=== PATIENT | female | born 1985 | race Caucasian/White ===

== ENCOUNTER 2016-10-22 18:13 | Emergency (ER) | payer BC ==
[~2016-10-22] VITALS: Ht 175.3 cm; Wt 63.6 kg
[~2016-10-22 18:13] MED LIST: BACTRIM DS 8001 TAB PO; CEPHALEXIN500 M1 PO; LEXAPRO; NAPROSYN375 MG PO; NORCO 325 MG-51 TAB PO; OCELLA 3 MG-0.01 TAB PO
[2016-10-22 18:15] VITALS: BP 148/88; TEMP 97.6
[2016-10-22] MEDS ORDERED: SPRINTEC 35 MCG1 TAB PO (18:18)
[2016-10-22 19:00] VITALS: PULSE 54
== END 2016-10-22 19:05 | disposition home or self-care (01) ==
LOC: COL.ER 18:13
DX: S61.011A Laceration without foreign body of right thumb without damage to nail, initial encounter (principal); W26.0XXA Contact with knife, initial encounter; Y92.009 Unspecified place in unspecified non-institutional (private) residence as the place of occurrence of the external cause

== ENCOUNTER → 2017-09-25 | Outpatient (CLI) | payer BC ==
[~2017-09-25] MED LIST changes: +SPRINTEC 35 MCG1 TAB PO
== END ==
LOC: COL.RAD 08:15
DX: R10.11 Right upper quadrant pain (principal); R10.13 Epigastric pain

== ENCOUNTER → 2017-10-03 | Outpatient (CLI) | payer BC | LOC: COL.RAD 07:56 | DX: R93.2 Abnormal findings on diagnostic imaging of liver and biliary tract (principal) | CPT/HCPCS: A9537; J2805 ==

== ENCOUNTER → 2018-04-09 | Outpatient (CLI) | payer BC | LOC: MC.RAD 09:00 | DX: Z12.31 Encounter for screening mammogram for malignant neoplasm of breast (principal); Z80.3 Family history of malignant neoplasm of breast ==